=== PATIENT | female | born 1970 | race Caucasian/White ===

== ENCOUNTER → 2016-08-02 | Outpatient (CLI) | payer OTHER ==
[~2016-08-02] MED LIST: ALLEGRA-D1 TAB.SR3 PO; BP PILL; CHOLESTEROL PILL; WELLBUTRIN PO
--- NOTE | ~2016-08-02 | MR103 ---
[facility] A Service of [facility] RADIOLOGY TEXT RESULTS PATIENT: JANES DUMONT LOCATION: [facility] : [birth year] UNIT #: [id number] AGE: [address]: Bob Marques MD SEX: F ORDER DR: [id number] [address] [address] [id number] O MR#: [id number] Acc #: [id number] NAME: JANES DUMONT : 1970 SEX: F STUDY DATE/TIME: 08/02/2016 13:04 UNIT: [facility] ROOM: STUDY DESCRIPTION: MR Knee Wo Contrast Lt Attending Physician: oBb Marques M.D. Referring Physician: Bob Marques M.D. Ordering Physician: Bob Marques M.D. Primary Care Physician: Bob Marques M.D. MRI CENTER REPORT This report is preliminary unless electronic signature is present. EXAM MRI of the left knee without contrast HISTORY 45-year-old female status post fall 3 weeks ago. Fell and twisted knee while playing with neighbors dog in yard. Posterior knee pain with some swelling and instability. COMPARISON Left knee films 07/21/2016. FINDINGS Multiplanar multiecho imaging was performed of the left knee utilizing a high field magnet and dedicated protocol. There is increased T2 marrow signal about the knee. Pattern most compatible with red marrow hyperplasia and most likely related to body habitus. Small knee effusion. No loose body. There is a trace amount of marrow edema along the medial femoral condyle and medial tibial plateau most likely related to altered biomechanical stress. 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 Medial meniscus appears intact. In the lateral compartment, the meniscus and articular cartilage appears normal. In the patellofemoral compartment, patellar and trochlear cartilage appears normal. Anterior and posterior cruciate ligaments appear intact. The lateral collateral ligament complex appears intact. The medial collateral ligament appears intact but there is a moderate amount of edema predominantly superficial to the MCL, could represent a component of grade 1 MCL sprain. Moderate amount of edema is noted along the posterior medial aspect of the knee extending from the G S bursa and along the STS. [facility] A Service of [facility] RADIOLOGY TEXT RESULTS PATIENT: JANES DUMONT LOCATION: [facility] : [birth year] UNIT #: [id number] AGE: [address]: Bob Marques MD SEX: F ORDER DR: medial head of the gastrocnemius muscle. Findings most consistent with ruptured Chun's cyst. Mild generalized soft tissue swelling and edema about the knee. IMPRESSION 1. 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 2. Trace marrow edema medial femoral condyle medial tibial plateau most likely related to altered biomechanical stress. 3. Menisci and cruciate ligaments appear intact. 4. Small knee effusion but a moderate amount of edema in the posterior medial aspect of the knee as well as edema tracking superficial and deep to the medial head of the gastrocnemius muscle. Findings most compatible with a recently ruptured Chun's cyst. There is some mild generalized soft tissue swelling and edema. Dictated by... Cresencio Javier M.D. THIS IS AN ELECTRONICALLY VERIFIED REPORT Cresencio Javier M.D. at 08/04/2016 8:35 AM JEMAL/leelee TD: 08/03/2016 13:54 JOB #: [id number] MRI CENTER REPORT Page 1 of 1
== END | disposition home or self-care (01) ==
LOC: SMRI 12:35
DX: M25.562 Pain in left knee (principal); M25.462 Effusion, left knee
CPT/HCPCS: 73721

== ENCOUNTER 2016-08-22 11:36 | Emergency (ER) | payer OTHER ==
--- NOTE | ~2016-08-22 | EKG ---
PATIENT: JANES DUMONT UNIT #: [id number] Ventricular Rate: 88 BPM Atrial Rate: 88 BPM P-R Interval: 158 ms QRS Duration: 98 ms Q-T Interval: 366 ms QTC Calculation(Bezet): 442 ms P Gardiner: 70 degrees Calculated R Gardiner: 34 degrees Calculated T Gardiner: 40 degrees Diagnosis Line: Normal sinus rhythm Diagnosis Line: Possible Left atrial enlargement Diagnosis Line: Borderline ECG Diagnosis Line: No previous ECGs available Diagnosis Line: Confirmed by SOUTH COREAS MD ([id number]) on Diagnosis Line: 08/31/2016 8:27:28 AM INTERPRETING MD: JOSS HARRIS
--- NOTE | ~2016-08-22 | CR72 ---
[facility]. [facility] A Service of [facility] & [facility] RADIOLOGY TEXT RESULTS PATIENT: JANES DUMONT LOCATION: SED : 66 UNIT #: [id number] AGE: [address]: Anthony Ponce MD SEX: F ORDER DR: [id number] [place] [id number] E MR#: [id number] Acc #: [id number] NAME: JANES DUMONT : 1970 SEX: F STUDY DATE/TIME: 08/22/2016 12:28 UNIT: SED ROOM: STUDY DESCRIPTION: CR Chest Single View Portable Attending Physician: Anthony Ponce M.D. Ordering Physician: Anthony Ponce M.D. Primary Care Physician: Bob Marques M.D. MEDICAL IMAGING REPORT This report is preliminary unless electronic signature is present. EXAM Chest. INDICATIONS Chest pain starting 3 days ago. A single AP portable view of the chest shows both lungs to be clear. The heart is normal in size. The mediastinal contour is normal. No significant bone abnormalities are seen. IMPRESSION Normal portable chest. Dictated by... Carole Abraham M.D. THIS IS AN ELECTRONICALLY VERIFIED REPORT Carole Abraham M.D. at 08/22/2016 4:49 PM AFF/dj TD: 08/22/2016 14:14 JOB #: [id number] MEDICAL IMAGING REPORT Page 1 of 1
--- NOTE | ~2016-08-22 | CT16 ---
[facility] [place]. [facility] A Service of [facility] RADIOLOGY TEXT RESULTS PATIENT: JANES DUMONT LOCATION: SED : 66 UNIT #: [id number] AGE: [address]: Anthony Ponce MD SEX: F ORDER DR: [id number] [place] [id number] E MR#: [id number] Acc #: [id number] NAME: JANES DUMONT : 1970 SEX: F STUDY DATE/TIME: 08/22/2016 15:45 UNIT: SED ROOM: STUDY DESCRIPTION: CT Angio Chest for PE Attending Physician: Anthony Ponce M.D. Ordering Physician: Anthony Ponce M.D. Primary Care Physician: Bob Marques M.D. MEDICAL IMAGING REPORT This report is preliminary unless electronic signature is present. EXAM CT angiography of the chest with contrast, pulmonary embolism protocol. DATE: 08/22/2016 HISTORY 45-year-old female chest pain for 3 days. Hypertension. COMPARISON AP portable chest 08/22/2016 at 12:28. No prior CT chest for comparison at this institution. PROCEDURE 2 mm axial images through the chest after IV contrast administration. 3-D coronal MIP reformatted images were obtained. Sagittal reformatted images were obtained. FINDINGS No pulmonary embolism. No aortic aneurysm. No aortic dissection. Subtle geographic ground-glass opacity is present within the left upper lobe may represent changes of mild pneumonitis. No dense lung consolidations are identified. No pathologically enlarged lymph nodes. Heart size within normal limits. Included portions of the upper abdominal organs within normal limits. Degenerative endplate spurring in the thoracic spine. IMPRESSION 1. Subtle geographic ground-glass density is present within the left upper lobe and may represent changes of mild pneumonitis. 2. No pulmonary embolism. No aortic aneurysm or aortic dissection. 3. The initial injection was suboptimal for pulmonary artery opacification, necessitating repeated contrast injection and imaging. [facility] A Service [facility] RADIOLOGY TEXT RESULTS PATIENT: JANES DUMONT LOCATION: SED : [birth year] UNIT #: [id number] AGE: [address]: Anthony Ponce MD SEX: F ORDER DR: Dictated by... Jing Burton M.D. THIS IS AN ELECTRONICALLY VERIFIED REPORT Jing Burton M.D. at 08/23/2016 8:48 AM CYNDI/vadim TD: 08/23/2016 00:03 JOB #: [id number] MEDICAL IMAGING REPORT Page 1 of 1
[~2016-08-22 11:36] MED LIST changes: -BP PILL; -CHOLESTEROL PILL
[2016-08-22] MEDS ORDERED: CHOLESTEROL PILL (11:41)
[2016-08-22] MEDS ORDERED: BP PILL (11:41)
[2016-08-22 12:17] LABS: POC - CKMB <1.0 ng/mL (0.0-7.9); POC - TROPONIN <0.05 ng/mL (<=0.05)
[2016-08-22 12:22] LABS: BASOPHIL% 0.5 % (0-2.5); EOSINOPHIL# 0.1 X10e3 (0-0.7); EOSINOPHIL% 1.1 % (0.0-7.0); HEMATOCRIT 43.5 % (35.0-45.0); HEMOGLOBIN 14.2 gm/dL (12.0-16.0); LYMPHOCYTE# 1.9 X10e3 (1.0-3.5); LYMPHOCYTE% 23.3 % (17.0-45.0); MEAN CORPUSCULAR HEMOGLOBIN 28.5 PG (28-34); MEAN CORPUSCULAR HGB CONC 32.7 g/dL (30-36); MEAN PLATELET VOLUME 7.1 FL (6.5-11.5); MONOCYTE# 0.6 X10e3 (0-1.0); MONOCYTE% 7.7 % (3.0-12.0); NEUTROPHIL# 5.4 X10e3 (1.5-7.1); NEUTROPHIL% 67.4 % (40-75); PLATELET COUNT 250 X10e3 (140-420); RED BLOOD COUNT 4.99 X10e (3.90-5.30); RED CELL DISTRIBUTION WIDTH 16.9 % (11.0-15.5)
[2016-08-22 12:23] LABS: DIFF IND NO
[2016-08-22 12:24] LABS: PROTHROMBIN TIME (PATIENT) 11.2 SECONDS (9.5-12.4)
[2016-08-22 12:31] LABS: PARTIAL THROMBOPLASTIN TIME 26.1 SECONDS (25.6-38.1)
[2016-08-22 12:45] LABS: ALKALINE PHOSPHATASE 107 U/L (32-92); AST (SGOT) 17 U/L (10-42); BILIRUBIN,TOTAL 0.2 mg/dL (0.2-2.0); BLOOD UREA NITROGEN 14 mg/dL (9-23); CALCIUM SERUM 9.2 mg/dL (8.4-10.2); CARBON DIOXIDE 24 mmol/L (22-31); CHLORIDE 104 mmol/L (100-111); CREATININE SERUM 0.7 mg/dL (0.6-1.4); GLOM FILT RATE Estimated 103.2 mL/min (>60); GLUCOSE FASTING 123 mg/dL (70-110); POTASSIUM 3.9 mmol/L (3.5-5.1); PROTEIN TOTAL SERUM 7.3 g/dL (6.0-8.3); SODIUM 136 mmol/L (135-145)
[2016-08-22 12:47] LABS: BILIRUBIN, DIRECT <0.1 mg/dL (0.0-0.2); BILIRUBIN,INDIRECT 0.1 mg/dL (0.0-0.9)
[2016-08-22 12:48] LABS: ALT (SGPT) <5 U/L (10-40)
[2016-08-22 13:48] LABS: POC - CKMB <1.0 ng/mL (0.0-7.9); POC - TROPONIN <0.05 ng/mL (<=0.05)
== END 2016-08-22 17:29 | disposition home or self-care (01) ==
LOC: SED 11:36
PROVIDERS: Emergency Medicine
DX: J18.9 Pneumonia, unspecified organism (principal); R07.89 Other chest pain; E78.5 Hyperlipidemia, unspecified; I10 Essential (primary) hypertension; F17.200 Nicotine dependence, unspecified, uncomplicated
CPT/HCPCS: 36415; 71010; 71275; 80048; 80076; 82553; 84484; 85025; 85379; 85610; 85730; 93005; 99285; Q9967

== ENCOUNTER → 2016-09-30 | Outpatient (CLI) | payer OTHER ==
[~2016-09-30] MED LIST changes: +BP PILL; +CHOLESTEROL PILL
--- NOTE | ~2016-09-30 | ST ---
Unit #: [id number] #: [id number] Patient: JANES DUMONT [id number] [address] [address] [id number] O MR#: [id number] NAME: JANES DUMONT : 1970 SEX: F STUDY DATE/TIME: 09/30/2016 UNIT: [facility] ROOM: STUDY DESCRIPTION: Stress nuclear & ECG combined Attending Physician: Bob Marques M.D. Referring Physician: Bob Marques M.D. Primary Care Physician: Bob Marques M.D. CARDIOLOGY REPORT EXAM Stress nuclear and ECG combined. INDICATIONS Chest pain, shortness of breath, nausea. SUMMARY Patient exercised on a Jono protocol to maximal effort. Patient was given technetium 99 Cardiolite, 11.02 and 36 mCi at rest and stress, respectively. Appropriate views were obtained. FINDINGS Patient completed 5 minutes and 7 seconds of exercise. Heart rate increased from 75 to 160 (93%) and blood pressure increased 125/70 to 230/90. The resting ECG was abnormal with flattened T waves in aVL. With stress, there were PVCs noted, but there were no diagnostic ST shifts. There was slight ST sagging in the inferolateral leads. Perfusion images demonstrated normal perfusion throughout the myocardium both at rest and stress with tissue attenuation artifact more prominently at rest that on stress. There is intestinal artifact, which is also more prominent at rest than on stress. Overall, uptake is poor both at rest and stress. Planar images demonstrate mild patient motion, both at rest and stress. There is mild LV enlargement and appears to be upper normal RV size. There is slight increase in lung uptake. Summed stress score is a 3. Summed difference score is 2. Changes involve primarily border detection at the base. Gated perfusion and wall motion analysis demonstrates end-diastolic volume 116 mL, ejection fraction greater than 65%. IMPRESSION 1. Severe deconditioning based on the patient's age. 2. Normal heart rate response. 3. Significant hypertensive blood pressure response to stress. 4. Stress nuclear study shows no ischemia. 5. Stress nuclear study shows no infarction. 6. LV enlargement is present, mild. 7. Normal LV function is present. Unit #: [id number] #: [id number] Patient: JANES DUMONT Dictated by... Michell Borges/anton TD: 10/01/2016 13:49 JOB #: [id number] CARDIOLOGY REPORT Page 1 of 1 X Dangelo Zhao MD CARDIOLOGY REPORT
--- NOTE | ~2016-09-30 | TH ---
Unit #: [id number] #: [id number] Patient: JANES DUMONT [id number] [address] [address] [id number] O MR#: [id number] NAME: JANES DUMONT : 1970 SEX: F STUDY DATE/TIME: 09/30/2016 UNIT: [facility] ROOM: STUDY DESCRIPTION: Stress nuclear Attending Physician: Bob Marques M.D. Referring Physician: Bob Marques M.D. Primary Care Physician: Bob Marques M.D. CARDIOLOGY REPORT EXAM Stress nuclear. INDICATIONS Chest pain, shortness of breath, nausea. FINDINGS Result text under order stress test. Please see this report for result text. Dictated by... Michell Borges/anton TD: 10/01/2016 13:51 JOB #: [id number] CARDIOLOGY REPORT Page 1 of 1 X Dangelo Zhao MD CARDIOLOGY REPORT
== END | disposition home or self-care (01) ==
LOC: CNUC 05:54
DX: R07.89 Other chest pain (principal); R73.09 Other abnormal glucose; E66.9 Obesity, unspecified; E78.5 Hyperlipidemia, unspecified; I51.7 Cardiomegaly; Z72.0 Tobacco use
CPT/HCPCS: 78452; 93017; A9500